=== PATIENT | female | born 1935 | race Caucasian/White ===

== ENCOUNTER 2024-02-12 15:44 | Inpatient (IN) | payer MEDICARE, BC ==
[~2024-02-12] VITALS: Ht 149.9 cm; Wt 59.4 kg
[~2024-02-12 15:44] MED LIST: ANAS1TAB50 PO; ASPI-605 PO; ATOR20TA PO; DEXL60CA3 PO; FENO160T PO; HYDR-4076 PO; LEVO137T24 PO; LORA-259 PO; LOSA1TAB39 PO; OLOP2.5D12 EACHEYE; OMEG10007 PO; RISE35TA PO
[2024-02-12 16:20] VITALS: O2SAT 98
[2024-02-12] MEDS: IV NS 0.9% 500 ML BAG IV ONE (16:48)
[2024-02-12 17:01] LABS: BASOPHILS # (AUTO) 0.1 K/uL (0.0-0.2); BASOPHILS % (AUTO) 1.4 % (0.0-2.0); EOSINOPHILS # (AUTO) 0.5 K/uL (0.0-0.7); EOSINOPHILS % (AUTO) 8.4 % (0.0-6.0); HEMATOCRIT 36 % (33-45); HEMOGLOBIN 11.7 g/dL (11.5-14.8); LYMPHOCYTES # (AUTO) 1.3 K/uL (0.8-4.8); MEAN CORPUSCULAR HEMOGLOBIN 29 PG (26.0-33.0); MEAN CORPUSCULAR HGB CONC 33 g/dl (31.0-36.0); MEAN CORPUSCULAR VOLUME 89 fL (82-100); MONOCYTES # (AUTO) 0.4 K/uL (0.1-1.30); MONOCYTES % (AUTO) 7.7 % (2.0-12.0); NEUTROPHILS # (AUTO) 3.4 K/uL (1.8-8.9); NEUTROPHILS % (AUTO) 59.5 % (43.0-81.0); PLATELET COUNT (AUTO) 286 K/uL (150-450); RED BLOOD CELL COUNT(AUTO) 4.07 MIL/uL (4.0-5.2); RED CELL DISTRIBUTION WIDTH 15.1 % (11.5-15.0); WHITE BLOOD COUNT (AUTO) 5.8 K/uL (4.3-11.0)
[2024-02-12 17:09] LABS: CALCIUM, SERUM 9.2 mg/dL (8.5-10.1); CARBON DIOXIDE 28 mmol/L (21-32); CHLORIDE 106 mmol/L (98-107); CREATININE 1.9 mg/dL (0.6-1.3); GLUCOSE 97 mg/dL (74-106); POTASSIUM 4.7 mmol/L (3.5-5.1); SODIUM SERUM 139 mmol/L (136-145); UREA NITROGEN, BLOOD 31 mg/dL (7-18)
[2024-02-12 17:26] LABS: ALANINE AMINOTRANSFERASE 16 U/L (12-78); ALBUMIN 3.8 g/dL (3.4-5.0); ALKALINE PHOSPHATASE 83 U/L (46-116); ASPARTATE AMINOTRANSFERASE 18 U/L (15-37); BILIRUBIN,DIRECT 0.1 mg/dL (0.0-0.2); BILIRUBIN,TOTAL 0.4 mg/dL (0.2-1.0); LIPASE 46 U/L (16-77); TOTAL PROTEIN, SERUM 6.9 g/dL (6.4-8.2)
[2024-02-12] MEDS ORDERED: ONDA4TAB11 PO (18:59)
[2024-02-12] MEDS ORDERED: MULT-213 PO (18:59)
[2024-02-12] MEDS ORDERED: MENT113O TP (18:59)
[2024-02-12] MEDS ORDERED: GABA-532 PO (18:59)
[2024-02-12] MEDS ORDERED: ACET-2030 PO (18:59)
[2024-02-12] MEDS ORDERED: QUET25TA PO ×2 (18:59)
[2024-02-12] MEDS ORDERED: POLY17PO4 PO (18:59)
[2024-02-12] MEDS ORDERED: NYST15PO4 TP (18:59)
[2024-02-12] MEDS ORDERED: ESCI20TA PO (18:59)
[2024-02-12] MEDS ORDERED: LABE100T5 PO (18:59)
[2024-02-12] MEDS ORDERED: PANT40TA49 PO (18:59)
[2024-02-12] MEDS ORDERED: LOSA100T31 PO (18:59)
[2024-02-12] MEDS ORDERED: BISA10SU11 RC (18:59)
[2024-02-12] MEDS ORDERED: SENN-301 PO (18:59)
[2024-02-12] MEDS ORDERED: QUET50TA PO (18:59)
[2024-02-12] MEDS ORDERED: LEVO75TA PO (18:59)
[2024-02-12] MEDS ORDERED: PIPERACI/TAZO 3.375GM/D5W 50ML PB IV ONE (19:12)
[2024-02-12] MEDS: PIPERACILLIN /TAZOBACTAM 3.375 G in IV D5W 50 ML IV ONE (19:27)
[2024-02-12] MEDS ORDERED: Z GUARD REMEDY 4 OZ OINT TP PRN (20:00)
[2024-02-12] MEDS ORDERED: MAGNESIUM HYDROXIDE 30 ML UDC PO PRN (20:00)
[2024-02-12] MEDS ORDERED: MAG HYDROX/AL HYDROX/SIMETH 30 ML UDC PO PRN (20:00)
[2024-02-12] MEDS ORDERED: ACETAMINOPHEN 325 MG TABLET PO PRN (20:00)
[2024-02-12] MEDS ORDERED: ONDANSETRON HCL/PF 4 MG/2 ML VIAL IVP PRN (20:00)
[2024-02-12 22:00] VITALS: BP 189/68; TEMP 98.1; O2SAT 95
[2024-02-12] MEDS: IV NS 0.9% 1,000 ML IV PRN (22:39)
[2024-02-12] MEDS: hydrALAZINE HCL 25 MG TABLET PO SCH (22:55)
[2024-02-12] MEDS ORDERED: QUETIAPINE FUMARATE 25 MG TABLET PO PRN (23:00)
[2024-02-12] MEDS: LABETALOL HCL (100MG) 100 MG TABLET PO SCH (23:28)
[2024-02-13 00:50] VITALS: BP 155/86
[2024-02-13] MEDS: PIPERACI/TAZO 3.375GM/D5W 50ML PB IV ONE (04:03)
[2024-02-13] MEDS: PIPERACILLIN /TAZOBACTAM 3.375 G in IV D5W 100 ML IV SCH (04:07)
[2024-02-13 04:51] VITALS: BP 136/69; TEMP 97.7
[2024-02-13] MEDS: PANTOPRAZOLE 40 MG TABLET.DR PO SCH (06:32)
[2024-02-13] MEDS: LEVOTHYROXINE SODIUM 75 MCG TABLET PO SCH (06:32)
[2024-02-13 06:37] LABS: BASOPHILS # (AUTO) 0.1 K/uL (0.0-0.2); BASOPHILS % (AUTO) 0.8 % (0.0-2.0); EOSINOPHILS # (AUTO) 0.5 K/uL (0.0-0.7); EOSINOPHILS % (AUTO) 7.3 % (0.0-6.0); HEMATOCRIT 31 % (33-45); HEMOGLOBIN 10.2 g/dL (11.5-14.8); LYMPHOCYTES # (AUTO) 1.5 K/uL (0.8-4.8); LYMPHOCYTES % (AUTO) 24.1 % (20.0-44.0); MEAN CORPUSCULAR HEMOGLOBIN 28 PG (26.0-33.0); MEAN CORPUSCULAR HGB CONC 33 g/dl (31.0-36.0); MEAN CORPUSCULAR VOLUME 86 fL (82-100); MONOCYTES # (AUTO) 0.5 K/uL (0.1-1.30); MONOCYTES % (AUTO) 8.7 % (2.0-12.0); NEUTROPHILS # (AUTO) 3.7 K/uL (1.8-8.9); NEUTROPHILS % (AUTO) 59.1 % (43.0-81.0); PLATELET COUNT (AUTO) 238 K/uL (150-450); RED BLOOD CELL COUNT(AUTO) 3.61 MIL/uL (4.0-5.2); RED CELL DISTRIBUTION WIDTH 14.8 % (11.5-15.0); WHITE BLOOD COUNT (AUTO) 6.3 K/uL (4.3-11.0)
[2024-02-13 07:00] VITALS: BP 138/68; TEMP 98.1; O2SAT 96
[2024-02-13 07:28] LABS: ALANINE AMINOTRANSFERASE 9 U/L (12-78); ALKALINE PHOSPHATASE 77 U/L (46-116); ASPARTATE AMINOTRANSFERASE 14 U/L (15-37); BILIRUBIN,DIRECT 0.2 mg/dL (0.0-0.2); BILIRUBIN,TOTAL 0.6 mg/dL (0.2-1.0); CALCIUM, SERUM 8.7 mg/dL (8.5-10.1); CARBON DIOXIDE 26 mmol/L (21-32); CHLORIDE 109 mmol/L (98-107); CREATININE 1.5 mg/dL (0.6-1.3); GLUCOSE 83 mg/dL (74-106); MAGNESIUM 2.2 mg/dL (1.8-2.4); PHOSPHORUS 3.4 mg/dL (2.5-4.9); POTASSIUM 4.1 mmol/L (3.5-5.1); SODIUM SERUM 142 mmol/L (136-145); UREA NITROGEN, BLOOD 26 mg/dL (7-18)
[2024-02-13] MEDS ORDERED: QUETIAPINE FUMARATE 25 MG TABLET PO PRN (08:00)
[2024-02-13] MEDS ORDERED: ONDANSETRON HCL/PF 4 MG/2 ML VIAL IVP PRN (08:00)
[2024-02-13] MEDS ORDERED: LOSARTAN POTASSIUM 50 MG TABLET PO SCH (09:00)
[2024-02-13] MEDS: MULTIVIT W/MINERALS 1 TAB TABLET PO SCH (09:58)
[2024-02-13] MEDS: GABAPENTIN 100 MG CAPSULE PO SCH (09:58)
[2024-02-13] MEDS: ESCITALOPRAM OXALATE (10 MG) 10 MG TABLET PO SCH (09:58)
[2024-02-13] MEDS: QUETIAPINE FUMARATE 25 MG TABLET PO SCH ×2 (09:58→18:33)
[2024-02-13 16:00] VITALS: BP 129/56; TEMP 97.3; O2SAT 93
[2024-02-13 20:00] VITALS: BP 164/34; TEMP 97.8; O2SAT 95
[2024-02-13] MEDS: SENNOSIDES 8.6 MG TABLET PO SCH (21:03)
[2024-02-13] MEDS: ATORVASTATIN 10 MG TABLET PO SCH (21:03)
[2024-02-13] MEDS: DOCUSATE SODIUM 100 MG CAPSULE PO SCH (21:03)
[2024-02-14 06:43] LABS: BASOPHILS # (AUTO) 0.1 K/uL (0.0-0.2); BASOPHILS % (AUTO) 1.1 % (0.0-2.0); EOSINOPHILS # (AUTO) 0.5 K/uL (0.0-0.7); EOSINOPHILS % (AUTO) 8.6 % (0.0-6.0); HEMATOCRIT 33 % (33-45); LYMPHOCYTES # (AUTO) 1.3 K/uL (0.8-4.8); LYMPHOCYTES % (AUTO) 24.2 % (20.0-44.0); MEAN CORPUSCULAR HEMOGLOBIN 29 PG (26.0-33.0); MEAN CORPUSCULAR HGB CONC 33 g/dl (31.0-36.0); MEAN CORPUSCULAR VOLUME 87 fL (82-100); MONOCYTES # (AUTO) 0.6 K/uL (0.1-1.30); MONOCYTES % (AUTO) 10.9 % (2.0-12.0); NEUTROPHILS % (AUTO) 55.2 % (43.0-81.0); PLATELET COUNT (AUTO) 245 K/uL (150-450); RED BLOOD CELL COUNT(AUTO) 3.84 MIL/uL (4.0-5.2); RED CELL DISTRIBUTION WIDTH 14.6 % (11.5-15.0); WHITE BLOOD COUNT (AUTO) 5.4 K/uL (4.3-11.0)
[2024-02-14 07:28] LABS: ALANINE AMINOTRANSFERASE 14 U/L (12-78); ALBUMIN 3.1 g/dL (3.4-5.0); ALKALINE PHOSPHATASE 73 U/L (46-116); ASPARTATE AMINOTRANSFERASE 17 U/L (15-37); BILIRUBIN,TOTAL 0.7 mg/dL (0.2-1.0); CARBON DIOXIDE 26 mmol/L (21-32); CHLORIDE 109 mmol/L (98-107); CREATININE 1.7 mg/dL (0.6-1.3); GLUCOSE 92 mg/dL (74-106); MAGNESIUM 2.5 mg/dL (1.8-2.4); PHOSPHORUS 3.9 mg/dL (2.5-4.9); POTASSIUM 3.9 mmol/L (3.5-5.1); SODIUM SERUM 142 mmol/L (136-145); TOTAL PROTEIN, SERUM 6.5 g/dL (6.4-8.2); UREA NITROGEN, BLOOD 23 mg/dL (7-18)
[2024-02-14 07:32] LABS: CREATINE KINASE, TOTAL 140 U/L (26-192)
[2024-02-14 08:00] VITALS: BP 162/72; TEMP 98.2; O2SAT 100
[2024-02-14] MEDS: PANTOPRAZOLE 40 MG TABLET.DR PO SCH (08:37)
[2024-02-14] MEDS ORDERED: AMOX-427 PO (12:51)
[2024-02-14 13:14] VITALS: BP 163/60
[2024-02-14] MEDS ORDERED: PIPERACILLIN /TAZOBACTAM 3.375 G in IV D5W 100 ML IV SCH (21:00)
[2024-02-16 02:06] LABS: PTH, INTACT 54 pg/mL (15-65)
[2024-02-17 07:12] LABS: *SPE A/G RATIO 1.1 (0.7-1.7); *SPE ALBUMIN 3.1 g/dL (2.9-4.4); *SPE ALPHA-1-GLOBULIN 0.3 g/dL (0.0-0.4); *SPE ALPHA-2-GLOBULIN 0.8 g/dL (0.4-1.0); *SPE BETA GLOBULIN 0.8 g/dL (0.7-1.3); *SPE GLOBULIN, TOTAL 2.7 g/dL (2.2-3.9); *SPE M-SPIKE Not Observed g/dL (Not Observed); *SPE PROTEIN TOTAL 5.8 g/dL (6.0-8.5); *SPEGAMMA GLOBULIN 0.8 g/dL (0.4-1.8)
== END 2024-02-14 16:10 | DRG 385 ==
LOC: ER 15:46 → MED 20:50
PROVIDERS: ADMIT Nurse Practitioner Family; ATTEND Nurse Practitioner Acute Care
DX: K51.318 Ulcerative (chronic) rectosigmoiditis with other complication (principal); G93.41 Metabolic encephalopathy; K65.9 Peritonitis, unspecified; N17.9 Acute kidney failure, unspecified; I10 Essential (primary) hypertension; E78.5 Hyperlipidemia, unspecified; E03.9 Hypothyroidism, unspecified; Z79.899 Other long term (current) drug therapy; Z88.1 Allergy status to other antibiotic agents; Z79.890 Hormone replacement therapy; F03.90 Unspecified dementia, unspecified severity, without behavioral disturbance, psychotic disturbance, mood disturbance, and anxiety; E86.9 Volume depletion, unspecified; D64.9 Anemia, unspecified; M89.8X9 Other specified disorders of bone, unspecified site
CPT/HCPCS: 36415; 76770-TC; 80048-TC; 80053-TC; 80076-TC; 82550-TC; 83690-TC; 83735-TC; 83970; 84100-TC; 84155; 84165; 84443-TC; 85025-TC; 87081-TC; A4223; G0378; J2543; J7030; J7040; J7060